=== PATIENT | male | born 1995 | race Caucasian/White ===

== ENCOUNTER 2018-08-02 16:08 | Emergency (ER) | payer BC ==
[~2018-08-02] VITALS: Ht 167.6 cm; Wt 55.6 kg
[2018-08-02 16:34] VITALS: BP 106/70
[2018-08-02] MEDS ORDERED: IBUPROFEN 800 MG TABLET PO STA (17:08)
[2018-08-02] MEDS ORDERED: IBUPROFEN 200 MG TABLET ONE (17:13)
== END 2018-08-02 18:02 | disposition home or self-care (01) ==
LOC: ED 17:57
DX: S43.101A Unspecified dislocation of right acromioclavicular joint, initial encounter (principal); W19.XXXA Unspecified fall, initial encounter; Y93.89 Activity, other specified; Y92.009 Unspecified place in unspecified non-institutional (private) residence as the place of occurrence of the external cause; Y99.8 Other external cause status
CPT/HCPCS: 99283

== ENCOUNTER 2019-06-20 13:53 | Emergency (ER) | payer BC ==
[~2019-06-20] VITALS: Ht 167.6 cm; Wt 55.9 kg
[2019-06-20 14:20] VITALS: BP 129/78
--- NOTE | 2019-06-20 15:35 | NUR ---
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
[2019-06-20] MEDS ORDERED: CARBAMIDE PEROXIDE EAR DROPS 6.5%, 15ML RIGHT EAR ONE (16:00)
[2019-06-20] MEDS ORDERED: CARBAMIDE PEROXIDE EAR DROPS 6.5%, 15ML ONE (16:04)
--- NOTE | 2019-06-20 16:09 | NUR ---
MEDICATED PER EMAR-DEBROX TO RIGHT EAR
--- NOTE | 2019-06-20 16:34 | NUR ---
EAR IRRIGATED POST DEBROX WITH MINIMAL DEBRI RESPONSE-PROVIDER MADE AWARE
== END 2019-06-20 17:00 | disposition home or self-care (01) ==
LOC: ED 16:03
DX: H61.21 Impacted cerumen, right ear (principal); R05 Cough
CPT/HCPCS: 69209; 99282